=== PATIENT | female | born 1975 | race Caucasian/White ===

== ENCOUNTER 2016-11-13 18:58 | Emergency (ER) | payer MEDICAID ==
--- NOTE | ~2016-11-13 | ER ---
PATIENT'S NAME: ANGELIQUE OLIVA [facility] AGE: 40 Y [address] ROOM: [place] [address] LOCATION: [facility] ADMIT DATE: 11/13/2016 ER/Outpatient Report DISCHARGE DATE: 11/13/2016 FAMILY PHYSICIAN: Kristian Damon MD ATTENDING PHYSICIAN: Fabiola Moffett HISTORY OF PRESENT ILLNESS: A 40-year-old female, who presented today with a forehead laceration. The patient states that approximately 1-1/2 hours ago, she tripped over a fell on her knees, and then hit her forehead on cement. She denies any visual disturbances, loss of consciousness, any nausea, or vomiting. She has been at baseline. She denies any ear drainage. No other complaints. She reports a 10/10 pain of that forehead laceration and also the knee Her tetanus is up-to-date. No other complaints at this time. PAST MEDICAL HISTORY: Includes 1. Depression. 2. Anxiety. 3. Insomnia. 4. ADHD. SURGICAL HISTORY: 1. Cholecystectomy. 2. Ankle surgery. 3. x2. SOCIAL HISTORY: She does not smoke, drink, or use any drugs. MEDICATIONS: 1. Prozac. 2. Abilify. 3. Adderall. 4. Trazodone. 5. Mirena IUD. ALLERGIES: NONE. REVIEW OF SYSTEMS: Reviewed by me, and negative with the exception of those discussed in HPI. PHYSICAL EXAMINATION: VITAL SIGNS: She is 5 feet 7 inches and weight is 108 kilos. Blood pressure PATIENT'S NAME: ANGELIQUE OLIVA [facility] AGE: 40 Y [address] ROOM: [place] [address] LOCATION: [facility] ADMIT DATE: 11/13/2016 ER/Outpatient Report DISCHARGE DATE: 11/13/2016 FAMILY PHYSICIAN: Kristian Damon MD ATTENDING PHYSICIAN: Fabiola Moffett A was 129/67, heart rate was 72, respiratory rate was 16, temperature was 97.8, and 96% on room air. GENERAL: The patient walked into the ER. She is alert and oriented x4. HEENT: Pupils are equal and reactive to light. GCS is 15. Head, she has sort of 2 cm, slightly irregular laceration above the right eyebrow. It is not actively bleeding. It is not very deep either, does not appear contaminated. It was cleaned off by the EMS who had arrived at the scene, although she declined ambulance transport. She has no facial tenderness. Otherwise, she has no pain on extraocular movements. Her pupils are equal and reactive to light. She has no entrapment. She has no malocclusion. No dental injury. No nasal injury. No subconjunctival hemorrhage. No raccoon eyes. No Johnson signs. She has no C-spine tenderness. EMERGENCY ROOM COURSE: The patient did not want sutures. I do not think she needs them either as it is superficial. These were Steri-Stripped without any difficulty. I did cover it at this time, and told her to be careful with it tonight, but eventually, the sutures will fall off on their own. She understands the reasons to come back to the ER sooner. IMPRESSION: Forehead laceration. MD JARRELL BILLINGS/lori /[id number] d: 11/14/16 0419 t: 11/14/16 1810, OUTPATIENT REPORT
== END 2016-11-13 19:34 | disposition disaster alternative care site (69) ==
LOC: GACC 18:58
DX: S01.81XA Laceration without foreign body of other part of head, initial encounter (principal); G47.00 Insomnia, unspecified; F41.9 Anxiety disorder, unspecified; F32.9 Major depressive disorder, single episode, unspecified; F90.9 Attention-deficit hyperactivity disorder, unspecified type; Z90.49 Acquired absence of other specified parts of digestive tract; Z98.890 Other specified postprocedural states; Z79.899 Other long term (current) drug therapy; W01.0XXD Fall on same level from slipping, tripping and stumbling without subsequent striking against object, subsequent encounter